=== PATIENT | male | born 1970 | race Two or more races ===

== ENCOUNTER 2019-01-13 06:00 | Day surgery (SDC) | payer OTHER ==
[~2019-01-13 06:00] MED LIST: CLONAZEPAM0.5 M1 PO; NORVASC PO; PAXIL30 MG PO; PEPCID20 MG PO
[2019-01-13] MEDS ORDERED: PERCOCET 5-3251 EACH PO (09:12)
[2019-01-13] MEDS ORDERED: POLY119PG PO (09:12)
[2019-01-13] MEDS ORDERED: NEURONTIN800 MG PO (09:13)
== END 2019-01-13 13:10 | disposition home or self-care (01) ==
LOC: CIR.AMB 06:00
DX: K42.0 Umbilical hernia with obstruction, without gangrene (principal); K43.2 Incisional hernia without obstruction or gangrene